=== PATIENT | female | born 1950 | race Caucasian/White ===

== ENCOUNTER 2018-04-03 08:18 | Emergency (ER) | payer MEDICARE, OTHER, SELFPAY ==
[2018-04-03 08:31] VITALS: BP 172/107; PULSE 89; RESP 18; TEMP 36.1; O2SAT 97
--- NOTE | 2018-04-03 08:51 | W.ED.GENAD ---
Discharge Plan Disposition Patient Disposition: HOME Condition: Improving Discharge Details Chief Complaint: Nk/Back Pain Clinical Impression: Back pain Primary Care Provider: Vi Savage ED Provider: Joanne Cadet Home Meds and New Rx's Prescriptions: New cyclobenzaprine 10 mg tablet 10 mg PO TID PRN (Reason: muscle spasm) Qty: 10 RF: 0 Discontinued meloxicam 15 MG tablet 15 mg PO DAILY Qty: 30 RF: 2 Discharge Instructions Instructions: Back Pain (ED) Additional Instructions: Encourage hydration. Encouraged gentle stretching and frequent ambulation. Tylenol and/or ibuprofen as needed for discomfort. You may use Flexeril as prescribed to help with spasm. This medication can be sedating and he should not drive while taking this medication. Please follow-up with primary care at the end of the week for reevaluation. If you develop altered sensation, change in urinary or bowel habits, fever/chills, increased pain or the new/worsening symptoms please seek care urgently once again Referrals: Vi Savage MD [Primary Care Provider] - Discharge Data Discharge Date/Time-TO BE ENTERED AT DEPARTURE: 04/03/18 09:58 Medical Decision Making Patient is a 68 year old female presenting today with left sided back pain that began 4 days ago after shoveling. STates that pain has steadily increased since then. Has been using Aleve intermittently since then with no relief in symptoms. Denies trauma, no fall. States that pain began the day after shoveling. Denies fevers/chills, no change in urinary habits. States she has been constipated. Endorses nausea with pain but no vomiting or change in appetite. States that pain is worse when sedentary and when beginning to move such as first thing in the morning. No radiating pain, no weakness or sensation change in LE. On exam, patient appears comfortable. She is moving well. She endorses 10/10 pain but appears quite comfortable at this time. Neuro exam is intact with no sensory or strength discrepancy. Negative straight leg raise bilaterally. She is good range of motion although she does endorse some discomfort with rotational movements. As patient was also concern for possible gallstones or kidney issues, this evaluated patient's abdomen. She has no abdominal discomfort. I reassured her that the gallbladder is on the contralateral side she is not exhibiting any discomfort over this area. She also does not have exquisite tenderness over the CVA area. With pain being elicited with range of motion, advised is very unlikely to be kidney related. Advised at this point, particularly as it came on after traveling, this is most consistent with muscle strain versus spasm Patient was treated with oral Tylenol, ibuprofen and Lidoderm patch. She is feeling much improved and is ambulate in well about the room. Patient has had similar discomfort in the past which was treated well with this combination as well as muscle relaxer. Patient did drive herself here. I did advise that we could prescribe her when she may find particularly helpful at night. I did advise against driving with this. She is given strict return precautions. She will contact her primary care today to schedule follow-up appointment. We discussed new/worsening symptoms when to seek care urgently once again. All of her questions and concerns were addressed and she is in agreement this plan. I did offer referral for physical therapy which patient declined at this time. Patient no longer on Meloxicam HPI General Mode of arrival: ambulatory. Date/Time Provider Initiated Documentation: 04/03/18 08:23. Limitations to Documentation: no limitations. Information obtained by: patient. History of Present Illness 68 year old F presents to the emergency department with the chief complaint of left sided back pain, described as severe, with intensity rated at 10. Quality is described as aching, and is localized to the back. Patient reports no radiation. Patient started experiencing this day(s) (4) and it has been constant. No relieving factors improve symptom(s), No exacerbating factors reported . Patient notes nausea/vomiting (endorses nauea when pain is severe); denies chest pain, cough, diaphoresis, fever/chills, headaches, loss of appetite, malaise, rash, shortness of breath and weakness. Patient did receive the following treatments prior to arrival, none Related Data Home Medications Medication Instructions Recorded Confirmed cyclobenzaprine 10 mg PO TID PRN #10 tab 04/03/18 Previous Rx's Medication Instructions Recorded cyclobenzaprine 10 mg PO TID PRN #10 tab 04/03/18 Allergies Allergy/AdvReac Type Severity Reaction Status Date / Time No Known Allergies Allergy Unverified 12/07/15 10:31 General Stated Complaint: Nk/Back Pain KIKE: 4 Review of Systems Constitutional Reports as per HPI, Denies chills, Denies fever(s), Denies headache(s) and Denies weakness ENT Denies headache(s) and Denies neck pain Cardiovascular Reports as per HPI Respiratory Reports as per HPI and Denies cough Musculoskeletal Reports as per HPI, Denies abnormal gait, Reports back pain, Denies muscle weakness, Denies neck pain, Denies numbness, Denies radiating pain into limb, Reports stiffness and Denies tingling Integumentary/Breasts Reports as per HPI, Denies rash and Denies wounds Neurologic Denies abnormal gait, Denies headache(s), Denies numbness, Denies tingling and Denies weakness [facility] Medical History Fibrocystic disease of breast Surgical History Colonoscopy - IV Sedation (12/07/15) Tubal Ligation, Laparoscopic Family History Mother Essential hypertension Heart disease Hyperlipidemia Myocardial infarction Father No problems noted. Sister No problems noted. Brother Essential hypertension Hyperlipidemia Brother Hyperlipidemia Brother No problems noted. Grandfather No problems noted. Grandfather Neoplasm Grandmother Neoplasm Grandmother No problems noted. Son No problems noted. Daughter No problems noted. Social History Smoking/Tobacco Use Status: Former Tobacco Use Exam Const General: cooperative, healthy appearing, comfortable, no acute distress, well developed and well groomed Nutritional Appearance: average body habitus and well nourished Orientation: alert and awake Resp Effort & Inspection: normal respiratory effort, able to speak in complete sentences and no respiratory distress Auscultation: clear to auscultation bilaterally, no rales, no rhonchi and no wheezes Cardio Rate: regular rate Rhythm: regular rhythm Heart Sounds: S1 normal and S2 normal GI Inspection: normal to inspection and non-distended Palpation: soft, no hepatosplenomegaly, not firm, no guarding, not rigid, no splenomegaly and nontender Percussion: normal to percussion Auscultation: normal bowel sounds Back/Spine/Pelvis Back: no CVA tenderness Cervical Spine: normal cervical lordosis and cervical ROM normal Thoracic/Lumbar Spine: thoraco-lumbar ROM normal (endorses discomfort with rotation but has full movement), straight leg raise negative bilaterally, No bend over test abnormal, No thoracic spinal tenderness, No lumbar spinal tenderness and No straight leg raise positive Back/spine/pelvis image: 1. area of discomfort Skin General skin exam: no rashes or lesions noted Lesions: no lesions Rashes: no rashes Trauma: no lacerations or abrasions Neuro General: alert and awake Cognition: normal cognition Speech: speech normal Gait: normal gait Motor: muscle tone normal throughout, strength 5/5 throughout, no movement abnormalities noted and no fasciculations Sensory Exam: no sensory deficits noted (no saddle paresthesias) DTR's: Rt Patellar: 2+, Lt Patellar: 2+, Rt Ankle: 2+ and Lt Ankle: 2+ Plantar Reflexes: Equivocal: bilateral Coordination: [id number] test normal Psych Appearance: grossly normal and well kempt Mental Status: mental status grossly normal Speech and Movement: speech and movement normal Course Vital Signs Temperature 36.1 C L 04/03/18 08:31 Pulse 89 04/03/18 08:31 Respiratory Rate 18 04/03/18 08:31 Blood Pressure 172/107 H 04/03/18 08:31 Pulse Oximetry 97 04/03/18 08:31 Temperature 36.1 C L 04/03/18 08:31 Pulse 89 04/03/18 08:31 Respiratory Rate 18 04/03/18 08:31 Respiratory Effort 04/03/18 08:31 Blood Pressure 172/107 H 04/03/18 08:31 Pulse Oximetry 97 04/03/18 08:31 Oxygen Delivery Method Room Air 04/03/18 08:31 Oxygen Flow Rate 0 04/03/18 08:31 Pain Level 10 04/03/18 08:31 Comment 04/03/18 08:31
--- NOTE | 2018-04-03 09:07 | ED.GENADUL_ITS ---
Discharge Plan Disposition Patient Disposition: HOME Condition: Improving Discharge Details Chief Complaint: Nk/Back Pain Clinical Impression: Back pain Primary Care Provider: Vi Savage ED Provider: Joanne Cadet Home Meds and New Rx's Prescriptions: New cyclobenzaprine 10 mg tablet 10 mg PO TID PRN (Reason: muscle spasm) Qty: 10 RF: 0 Discontinued meloxicam 15 MG tablet 15 mg PO DAILY Qty: 30 RF: 2 Discharge Instructions Instructions: Back Pain (ED) Additional Instructions: Encourage hydration. Encouraged gentle stretching and frequent ambulation. Tylenol and/or ibuprofen as needed for discomfort. You may use Flexeril as prescribed to help with spasm. This medication can be sedating and he should not drive while taking this medication. Please follow-up with primary care at the end of the week for reevaluation. If you develop altered sensation, change in urinary or bowel habits, fever/chills, increased pain or the new/worsening symptoms please seek care urgently once again Referrals: Vi Savage MD [Primary Care Provider] - Discharge Data Discharge Date/Time-TO BE ENTERED AT DEPARTURE: 04/03/18 09:58 Medical Decision Making Patient is a 68 year old female presenting today with left sided back pain that began 4 days ago after shoveling. STates that pain has steadily increased since then. Has been using Aleve intermittently since then with no relief in symptoms. Denies trauma, no fall. States that pain began the day after shoveling. Denies fevers/chills, no change in urinary habits. States she has been constipated. Endorses nausea with pain but no vomiting or change in appetite. States that pain is worse when sedentary and when beginning to move such as first thing in the morning. No radiating pain, no weakness or sensation change in LE. On exam, patient appears comfortable. She is moving well. She endorses 10/10 pain but appears quite comfortable at this time. Neuro exam is intact with no sensory or strength discrepancy. Negative straight leg raise bilaterally. She is good range of motion although she does endorse some discomfort with rotational movements. As patient was also concern for possible gallstones or kidney issues, this evaluated patient's abdomen. She has no abdominal discomfort. I reassured her that the gallbladder is on the contralateral side she is not exhibiting any discomfort over this area. She also does not have exquisite tenderness over the CVA area. With pain being elicited with range of motion, advised is very unlikely to be kidney related. Advised at this point, particularly as it came on after traveling, this is most consistent with muscle strain versus spasm Patient was treated with oral Tylenol, ibuprofen and Lidoderm patch. She is feeling much improved and is ambulate in well about the room. Patient has had similar discomfort in the past which was treated well with this combination as well as muscle relaxer. Patient did drive herself here. I did advise that we could prescribe her when she may find particularly helpful at night. I did advise against driving with this. She is given strict return precautions. She will contact her primary care today to schedule follow-up appointment. We discussed new/worsening symptoms when to seek care urgently once again. All of her questions and concerns were addressed and she is in agreement this plan. I did offer referral for physical therapy which patient declined at this time. Patient no longer on Meloxicam HPI General Mode of arrival: ambulatory . Date/Time Provider Initiated Documentation: 04/03/18 08:23 . Limitations to Documentation: no limitations . Information obtained by: patient . History of Present Illness 68 year old F presents to the emergency department with the chief complaint of left sided back pain, described as severe, with intensity rated at 10. Quality is described as aching, and is localized to the back. Patient reports no ra diation. Patient started experiencing this day(s) (4) and it has been constant. No relieving factors improve symptom(s), No exacerbating factors reported . Patient notes nausea/vomiting (endorses nauea when pain is severe); denies chest pain, cough, diaphoresis, fever/chills, headaches, loss of appetite, malaise, rash, shortness of breath and weakness. Patient did receive the following treatments prior to arrival, none Related Data Home Medications Medication Instructions Recorded Confirmed cyclobenzaprine 10 mg PO TID PRN #10 tab 04/03/18 Previous Rx's Medication Instructions Recorded cyclobenzaprine 10 mg PO TID PRN #10 tab 04/03/18 Allergies Allergy/AdvReac Type Severity Reaction Status Date / Time No Known Allergies Allergy Unverified 12/07/15 10:31 General Stated Complaint: Nk/Back Pain KIKE: 4 Review of Systems Constitutional Reports as per HPI, Denies chills, Denies fever(s), Denies headache(s) and Denies weakness ENT Denies headache(s) and Denies neck pain Cardiovascular Reports as per HPI Respiratory Reports as per HPI and Denies cough Musculoskeletal Reports as per HPI, Denies abnormal gait, Reports back pain, Denies muscle weakn ess, Denies neck pain, Denies numbness, Denies radiating pain into limb, Reports stiffness and Denies tingling Integumentary/Breasts Reports as per HPI, Denies rash and Denies wounds Neurologic Denies abnormal gait, Denies headache(s), Denies numbness, Denies tingling and Denies weakness PFS Medical History Fibrocystic disease of breast Surgical History Colonoscopy - IV Sedation (12/07/15) Tubal Ligation, Laparoscopic Family History Mother Essential hypertension Heart disease Hyperlipidemia Myocardial infarction Father No problems noted. Sister No problems noted. Brother Essential hypertension Hyperlipidemia Brother Hyperlipidemia Brother No problems noted. Grandfather No problems noted. Grandfather Neoplasm Grandmother Neoplasm Grandmother No problems noted. Son No problems noted. Daughter No problems noted. Social History Smoking/Tobacco Use Status: Former Tobacco Use Exam Const General: cooperative, healthy appearing, comfortable, no acute distress, well developed and well groomed Nutritional Appearance: average body habitus and well nourished Orientation: alert and awake Resp Effort & Inspection: normal respiratory effort, able to speak in complete sentences and no respiratory distress Auscultation: clear to auscultation bilaterally, no rales, no rhonchi and no wheezes Cardio Rate: regular rate Rhythm: regular rhythm Heart Sounds: S1 normal and S2 normal GI Inspection: normal to inspection and non-distended Palpation: soft, no hepatosplenomegaly, not firm, no guarding, not rigid, no splenomegaly and nontender Percussion: normal to percussion Auscultation: normal bowel sounds Back/Spine/Pelvis Back: no CVA tenderness Cervical Spine: normal cervical lordosis and cervical ROM normal Thoracic/Lumbar Spine: thoraco-lumbar ROM normal (endorses discomfort with rotation but has full movement), straight leg raise negative bilaterally, No bend over test abnormal, No thoracic spinal tenderness, No lumbar spinal tenderness and No straight leg raise positive Back/spine/pelvis image: 1. area of discomfort Skin General skin exam: no rashes or lesions noted Lesions: no lesions Rashes: no rashes Trauma: no lacerations or abrasions Neuro General: alert and awake Cognition: normal cognition Speech: speech normal Gait: normal gait Motor: muscle tone normal throughout, strength 5/5 throughout, no movement abnormalities noted and no fasciculations Sensory Exam: no sensory deficits noted (no saddle paresthesias) DTR's: Rt Patellar: 2+, Lt Patellar: 2+, Rt Ankle: 2+ and Lt Ankle: 2+ Plantar Reflexes: Equivocal: bilateral Coordination: [id number] test normal Psych Appearance: grossly normal and well kempt Mental Status: mental status grossly normal Speech and Movement: speech and movement normal Course Vital Signs Temperature 36.1 C L 04/03/18 08:31 Pulse 89 04/03/18 08:31 Respiratory Rate 18 04/03/18 08:31 Blood Pressure 172/107 H 04/03/18 08:31 Pulse Oximetry 97 04/03/18 08:31 Temperature 36.1 C L 04/03/18 08:31 Pulse 89 04/03/18 08:31 Respiratory Rate 18 04/03/18 08:31 Respiratory Effort 04/03/18 08:31 Blood Pressure 172/107 H 04/03/18 08:31 Pulse Oximetry 97 04/03/18 08:31 Oxygen Delivery Method Room Air 04/03/18 08:31 Oxygen Flow Rate 0 04/03/18 08:31 Pain Level 10 04/03/18 08:31 Comment 04/03/18 08:31
[2018-04-03] MEDS: Acetaminophen 500 MG TAB 1000 MG PO (09:15)
[2018-04-03] MEDS: Ibuprofen 600 MG TAB PO (09:15)
[2018-04-03] MEDS: Lidocaine 5% Patch 1 PATCH TP (09:16)
== END 2018-04-03 09:58 | disposition home or self-care (01) ==
PROVIDERS: Emergency Provider Physician Assistant; PCP Family Medicine
DX: M54.6 Pain in thoracic spine (principal)
CPT/HCPCS: 99283

== ENCOUNTER 2018-04-30 02:19 | Outpatient (CLI) | payer MEDICARE, SELFPAY ==
--- NOTE | 2018-04-30 12:00 | DI.MAMMO_ITS ---
SYMPTOM/DIAGNOSIS: SCREENING, Z12.31 MAMMOGRAMS: Mammograms were interpreted according to the usual protocol including computer analysis with CAD system, tomosynthesis and C view imaging. Comparison is made with prior examinations. Breast density, category B. No suspicious masses or microcalcifications are seen. There is no definite evidence of malignancy. IMPRESSION: Negative mammogram. Routine screening is recommended. Category 1. MQSA ASSESSMENT OF FINDINGS: Negative. Category 1. Patient will receive a letter notifying them of these results. BI-RADS category B. There are scattered areas of fibroglandular density.
== END 2018-04-30 02:39 ==
PROVIDERS: PCP Family Medicine; Visit Provider Family Medicine
DX: Z12.31 Encounter for screening mammogram for malignant neoplasm of breast (principal)
CPT/HCPCS: 77063; 77067

== ENCOUNTER 2018-10-31 09:06 | Outpatient (CLI) | payer MEDICARE, OTHER, SELFPAY ==
[2018-10-31 12:15] LABS: Calculated LDL 153 mg/dL; Cholesterol 239 mg/dL (50-200); Glucose 89 mg/dL (70-100); HDL Cholesterol 71 mg/dL (40-60); Triglyceride 77 mg/dL (30-150)
== END 2018-10-31 09:26 ==
PROVIDERS: PCP Family Medicine; Visit Provider Family Medicine
DX: E78.89 Other lipoprotein metabolism disorders (principal); Z13.1 Encounter for screening for diabetes mellitus
CPT/HCPCS: 36415; 80061; 82947; 83721

== ENCOUNTER 2019-05-06 02:03 | Outpatient (CLI) | payer MEDICARE, OTHER, SELFPAY ==
--- NOTE | 2019-05-06 08:45 | DI.MAMMO_ITS ---
EXAM: MG MAMMO SCREENING CLINICAL HISTORY: screening, Z12.31. TECHNIQUE: Bilateral full field digital CC and MLO mammographic images were obtained with 3D tomosyn thesis and utilizing computer aided detection (CAD). COMPARISON: Available for comparison. FINDINGS: Masses/Architectural Distortion: None seen. Microcalcifications: No suspicious pleomorphic-type are seen. Skin Thickening/Nipple Retraction: None. IMPRESSION: 1. No significant interval change with no specific features of malignancy noted. 2. Unless there is more urgent need, screening mammography is recommended, as per [employer] guidelines. ACR BI-RAD Category- 1 Negative Breast Density - Category B - Scattered areas of fibroglandular density A negative radiographic report should not delay biopsy if a dominant or clinically suspicious mass is present. Up to ten percent of cancers are not identified on mammography. A negative report may reinforce clinical impression. Adenosis and dense breasts may obscure an underlying neoplasm. False positive reports average 6 to 10%. Patient will receive a letter notifying them of these results.
== END 2019-05-06 02:23 ==
PROVIDERS: PCP Family Medicine; Visit Provider Family Medicine
DX: Z12.31 Encounter for screening mammogram for malignant neoplasm of breast (principal)
CPT/HCPCS: 77063; 77067

== ENCOUNTER 2020-06-16 02:30 | Outpatient (CLI) | payer MEDICARE, OTHER, SELFPAY ==
--- NOTE | 2020-06-16 06:15 | DI.DEXA_ITS ---
EXAM: XR DEXA BONE DENSITY W/WO KORIN CLINICAL HISTORY: decreased bone density,m85.99,other disorder bone density,screening for TECHNIQUE: HoloLight Extraction Horizon C densitometer. COMPARISON: No exams were available for comparison FINDINGS: Dough Catcher view of the thoracic and lumbar spine shows degenerative disc changes. No compression fracture s. Bone mineral density measurements of the lumbar spine correspond to a total T-score of 2.0, in the no rmal range. Endplate osteophytes a falsely elevate bone mineral density measurements. Bone mineral density measurements of the left hip correspond to a total T-score of -1.2 and a femoral neck T-score of -1.4, in the osteopenic range. Left forearm bone mineral density measurements correspond to a T-score of the distal 3rd of -1.2, in the mildly osteopenic range. IMPRESSION: Normal bone mineral density of the lumbar spine. Mild osteopenia of the left hip and left forearm.
--- NOTE | 2020-06-16 06:15 | DI.MAMMO_ITS ---
EXAM: MAMMO SCREENING CLINICAL HISTORY: screening TECHNIQUE: Mammograms were interpreted according to the usual protocol including computer analysis w [employer] CAD system, tomosynthesis and C-view imaging. COMPARISON: 2013 through 2019 FINDINGS: The breasts are composed of mainly fatty density , Breast Density category A. No suspicious masses or suspicious microcalcifications are seen. Vascular calcifications are inciden tally noted. No skin thickening or abnormal axillary lymph nodes are seen. There has been no significant change from prior exams. IMPRESSION: BI-RADS Category 1, Negative mammogram Yearly screening mammography is recommended. Breast Density - Category A, fatty density. A negative radiographic report should not delay biopsy if a dominant or clinically suspicious mass is present. Up to ten percent of cancers are not identified on mammography. A negative report may reinforce clinical impression. Adenosis and dense breasts may obscure an underlying neoplasm. False positive reports average 6 to 10%. Patient will receive a letter notifying them of these results.
--- NOTE | 2020-06-16 06:15 | DI.US_ITS ---
EXAM: US AAA SCREENING CLINICAL HISTORY: screening for aaa,z13.6 COMPARISON: No exams were available for comparison FINDINGS: Abdominal Aorta: Proximal: 2.5 x 2.5 cm Mid: 1.9 by 2.1 cm Distal: 2.0 x 1.9 cm Iliacs: Right: 1 x 1 cm Left: 1 x 1 cm The doppler velocities are within normal limits. No significant atherosclerotic disease is seen. IMPRESSION: No evidence of abdominal aortic aneurysm. DATA REPOSITORY:
== END 2020-06-16 02:50 ==
PROVIDERS: PCP Family Medicine; Visit Provider Nurse Practitioner Family
DX: Z12.31 Encounter for screening mammogram for malignant neoplasm of breast (principal); M85.88 Other specified disorders of bone density and structure, other site; Z13.6 Encounter for screening for cardiovascular disorders
CPT/HCPCS: 76706; 77063; 77067; 77080

== ENCOUNTER 2020-06-16 03:39 | Outpatient (CLI) | payer MEDICARE, OTHER, SELFPAY ==
[2020-06-16 08:04] LABS: HCT 42.8 % (36.0-46.0); HGB 13.8 g/dL (11.2-15.7); MCH 29.6 pg (27.0-33.0); MCHC 32.2 % (32.0-36.0); MCV 91.6 fL (80-95); MPV 11.2 fL (8.0-11.0); Platelet Count 260 10^3/uL (130-400); RBC 4.67 10^6/uL (3.93-5.22); RDW 13.2 % (11.7-14.6); RDW-SD 44.9 fL; WBC 4.13 10^3/uL (4.4-10.8)
[2020-06-16 09:03] LABS: ALT 23 U/L (14-59); AST 20 U/L (15-37); Albumin 3.4 g/dL (3.4-5.0); Alkaline Phosphatase 98 U/L (46-116); Anion Gap 4.4 mmol/L (3-11); BUN 19 mg/dL (7-18); Bilirubin, Total 0.5 mg/dL (0.2-1.0); CO2 33.6 mmol/L (21.0-32.0); CREATININE 0.9 mg/dL (0.55-1.02); Calcium 8.8 mg/dL (8.5-10.1); Calculated LDL 141 mg/dL (<100); Chloride 105 mmol/L (98-107); Cholesterol 223 mg/dL (<200); Glucose 103 mg/dL (74-106); HDL Cholesterol 68 mg/dL (40-60); Potassium 4.4 mmol/L (3.5-5.1); Sodium 143 mmol/L (136-145); Total Protein 6.6 g/dL (6.4-8.2); Triglyceride 70 mg/dL (<150)
[2020-06-16 09:25] LABS: Vitamin B12 568 pg/mL (193-986)
== END 2020-06-16 03:40 | disposition home or self-care (01) ==
LOC: LBO 03:39
PROVIDERS: Nurse Practitioner Family; PCP Family Medicine; Visit Provider Nurse Practitioner Family
DX: E78.5 Hyperlipidemia, unspecified (principal); G62.9 Polyneuropathy, unspecified
CPT/HCPCS: 36415; 80053; 80061; 85027; 82607

== ENCOUNTER 2021-08-10 02:42 | Outpatient (CLI) | payer MEDICARE, OTHER, SELFPAY ==
[2021-08-10 10:32] LABS: ALT 26 U/L (14-59); AST 22 U/L (15-37); Albumin 3.3 g/dL (3.4-5.0); Alkaline Phosphatase 95 U/L (46-116); Anion Gap 7.5 mmol/L (3-11); BUN 35 mg/dL (7-18); Bilirubin, Total 0.4 mg/dL (0.2-1.0); CO2 30.5 mmol/L (21.0-32.0); CREATININE 0.8 mg/dL (0.55-1.02); Calcium 8.7 mg/dL (8.5-10.1); Calculated LDL 174 mg/dL (<100); Chloride 104 mmol/L (98-107); Cholesterol 258 mg/dL (<200); Glucose 84 mg/dL (74-106); HDL Cholesterol 73 mg/dL (40-60); Potassium 4.1 mmol/L (3.5-5.1); Sodium 142 mmol/L (136-145); Total Protein 6.5 g/dL (6.4-8.2); Triglyceride 59 mg/dL (<150)
== END 2021-08-10 02:43 | disposition home or self-care (01) ==
LOC: LBO 02:42
DX: E78.5 Hyperlipidemia, unspecified (principal); I10 Essential (primary) hypertension
CPT/HCPCS: 36415; 80053; 80061

== ENCOUNTER 2021-08-25 01:56 | Outpatient (CLI) | payer MEDICARE, OTHER, SELFPAY ==
--- NOTE | 2021-08-25 07:45 | DI.RAD_ITS ---
Exam(s) XR ELBOW RT COMPLETE EXAM: XR ELBOW RT COMPLETE CLINICAL HISTORY: injury/fall about 1 year ago - not better,rt elbow pain,m25.521. TECHNIQUE: 2D digital imaging was performed. COMPARISON: No exams were available for comparison FINDINGS: 3 views No evident of fracture nor joint effusion. No swelling of the olecranon bursa. Radial head and neck unremarkable. Medial epicondyle unremarkable. Slight irregularity of the cortex of the lateral epi condyle may indicate an element of epicondylitis. Correlation with site of tenderness is recommended . Bone density otherwise normal and there are no significant osseous lesions in the field of view of this study IMPRESSION: No fracture or joint effusion. Findings suggestive of lateral epicondylitis DATA REPOSITORY: RADIATION DOSE DELIVERED:
== END 2021-08-25 02:16 ==
LOC: DI 01:57
DX: M25.521 Pain in right elbow (principal)
CPT/HCPCS: 73080

== ENCOUNTER → 2021-09-13 02:09 | Outpatient (CLI) | payer MEDICARE, OTHER, SELFPAY ==
--- NOTE | 2021-09-13 12:46 | DI.MAMMO_ITS ---
Exam(s) MAMMO SCREENING EXAM: MAMMO SCREENING CLINICAL HISTORY: screening,Z12.39. TECHNIQUE: Bilateral full field digital CC and MLO mammographic images were obtained with 3D tomosyn thesis and utilizing computer aided detection (CAD). COMPARISON: Prior mammograms were reviewed, the most recent being May 2020. FINDINGS: Again noted is a stable appearing group of microcalcifications upper-outer quadrant left breast. There are no new spiculated masses nor new malignant appearing microcalcification groups. There is no significant architectural distortion nor skin thickening-retraction. IMPRESSION: Stable benign-appearing findings. No radiographic evidence of malignancy. BI-RADS Category 2 - Benign Findings Breast Density - Category B - Scattered areas of fibroglandular density Breast density Category C or D implies that the patient has dense breast tissue. Dense breast tissue can make it harder to find cancer on a mammogram. Dense breast tissue is also associated with an incr eased risk of breast cancer. This information about the result of the mammogram report was provided to the patient to raise their awareness. Use this report when you speak with the patient about their risks for breast cancer, which includes their family history. At that time, you may recommend additional screening tests (Ultrasoun d or MRI) as these tests may add significant information. A negative radiographic report should not delay biopsy if a dominant or clinically suspicious mass is present. Up to ten percent of cancers are not identified on mammography. A negative report may reinforce clinical impression. Adenosis and dense breasts may obscure an underlying neoplasm. False positive reports average 6 to 10%. Patient will receive a letter notifying them of these results.
== END ==
DX: Z12.31 Encounter for screening mammogram for malignant neoplasm of breast (principal); N60.82 Other benign mammary dysplasias of left breast
CPT/HCPCS: 77063; 77067

== ENCOUNTER 2022-09-16 00:20 | Outpatient (CLI) | payer MEDICARE, OTHER, SELFPAY ==
--- NOTE | 2022-09-16 06:30 | DI.MAMMO_ITS ---
Exam(s) MAMMO SCREENING EXAM: MAMMO SCREENING CLINICAL HISTORY: screening,z12.39 TECHNIQUE: Mammograms were interpreted according to the usual protocol including computer analysis w [employer] CAD system, tomosynthesis and C-view imaging. COMPARISON: 2013 through 2021 FINDINGS: The breasts are composed of mainly fatty density , Breast Density category A. No suspicious masses or suspicious microcalcifications are seen. No skin thickening or abnormal axillary lymph nodes are seen. There has been no significant change from prior exams. IMPRESSION: BI-RADS Category 1, Negative mammogram Yearly screening mammography is recommended. Breast Density - Category A, fatty density. A negative radiographic report should not delay biopsy if a dominant or clinically suspicious mass is present. Up to ten percent of cancers are not identified on mammography. A negative report may reinforce clinical impression. Adenosis and dense breasts may obscure an underlying neoplasm. False positive reports average 6 to 10%. Patient will receive a letter notifying them of these results.
== END 2022-09-16 00:40 ==
LOC: DI 00:20
PROVIDERS: PCP Nurse Practitioner Family; Visit Provider Nurse Practitioner Family
DX: Z12.31 Encounter for screening mammogram for malignant neoplasm of breast (principal)
CPT/HCPCS: 77063; 77067

== ENCOUNTER 2023-08-07 11:31 | Outpatient (REF) | payer MEDICARE, OTHER, SELFPAY ==
[2023-08-07 12:45] LABS: ALT 22 U/L (14-59); AST 19 U/L (15-37); Albumin 3.2 g/dL (3.4-5.0); Alkaline Phosphatase 93 U/L (46-116); Anion Gap 7.3 mmol/L (3-11); BUN 21 mg/dL (7-18); Bilirubin, Total 0.5 mg/dL (0.2-1.0); CO2 29.7 mmol/L (21.0-32.0); CREATININE 0.7 mg/dL (0.55-1.02); Calcium 9.1 mg/dL (8.5-10.1); Calculated LDL 157 mg/dL (<100); Chloride 105 mmol/L (98-107); Cholesterol 248 mg/dL (<200); Estimated GFR 91.83 (mL/min/1.73m2); Glucose 88 mg/dL (74-106); HDL Cholesterol 77 mg/dL (40-60); Potassium 4.2 mmol/L (3.5-5.1); Sodium 142 mmol/L (136-145); Total Protein 6.5 g/dL (6.4-8.2); Triglyceride 72 mg/dL (<150)
== END 2023-08-07 11:32 | disposition home or self-care (01) ==
LOC: LBN 11:31
PROVIDERS: PCP Nurse Practitioner Family; Visit Provider Nurse Practitioner Family
DX: E78.5 Hyperlipidemia, unspecified (principal)
CPT/HCPCS: 80053; 80061

== ENCOUNTER → 2023-09-18 02:53 | Outpatient (CLI) | payer MEDICARE, OTHER, SELFPAY ==
--- NOTE | 2023-09-18 06:45 | DI.MAMMO_ITS ---
Exam(s) MAMMO SCREENING EXAM: MAMMO SCREENING CLINICAL HISTORY: screening,z12.39. TECHNIQUE: Bilateral full field digital CC and MLO mammographic images were obtained with 3D tomosyn thesis and utilizing computer aided detection (CAD). COMPARISON: Prior mammograms were reviewed. FINDINGS: There has been no significant change in the appearance and distribution of the fibroglandular tissue. There are no new spiculated masses nor new malignant appearing microcalcification groups. A group of microcalcifications in the upper outer quadrant of the left breast located 15 cm in from t he nipple appears unchanged from prior mammograms dating back to 2019. There is no significant architectural distortion nor skin thickening-retraction. IMPRESSION: Stable benign-appearing findings. No radiographic evidence of malignancy. BI-RADS Category 2 - Benign Findings Breast Density - Category B - Scattered areas of fibroglandular density Breast density Category C or D implies that the patient has dense breast tissue. Dense breast tissue can make it harder to find cancer on a mammogram. Dense breast tissue is also associated with an incr eased risk of breast cancer. This information about the result of the mammogram report was provided to the patient to raise their awareness. Use this report when you speak with the patient about their risks for breast cancer, which includes their family history. At that time, you may recommend additional screening tests (Ultrasoun d or MRI) as these tests may add significant information. A negative radiographic report should not delay biopsy if a dominant or clinically suspicious mass is present. Up to ten percent of cancers are not identified on mammography. A negative report may reinforce clinical impression. Adenosis and dense breasts may obscure an underlying neoplasm. False positive reports average 6 to 10%. Patient will receive a letter notifying them of these results.
--- NOTE | 2023-09-18 06:45 | DI.DEXA_ITS ---
Exam(s) XR DEXA BONE DENSITY W/WO KORIN EXAM: XR DEXA BONE DENSITY W/WO KORIN CLINICAL HISTORY: screening for osteoporosis in postmenopausal woman,z78.0 TECHNIQUE: COMPARISON: CR XR DEXA BONE DENSITY W/WO KORIN from 06/16/2020 FINDINGS: Lateral Spine Image: Unremarkable. No compression deformities identified. Left hip: Total T-Score: -1.0. This compares to -1.2 on the prior examination. Total Z-Score: 0.7 T- and Z-scores: Within normal limits. No evidence of osteoporosis. Lumbar Spine: Total T-Score: 2.7. This compares to 2.0 on the prior examination. Total Z-Score: 4.9 T- and Z-scores: Within normal limits. No evidence of osteoporosis. IMPRESSION: No evidence of osteoporosis.
== END ==
PROVIDERS: PCP Nurse Practitioner Family; Visit Provider Nurse Practitioner Family
DX: Z12.39 Encounter for other screening for malignant neoplasm of breast (principal); E78.5 Hyperlipidemia, unspecified; Z78.0 Asymptomatic menopausal state
CPT/HCPCS: 77063; 77067; 77080

== ENCOUNTER 2024-10-09 01:50 | Outpatient (CLI) | payer MEDICARE, SELFPAY ==
--- NOTE | 2024-10-09 08:40 | DI.MAMMO_ITS ---
Exam(s) MAMMO SCREENING EXAM: MAMMO SCREENING CLINICAL HISTORY: screening,z12.39 TECHNIQUE: Bilateral full field digital CC and MLO mammographic images were obtained with 3D tomosynthesis and utilizing computer aided detection (CAD). COMPARISON: Comparison is made with prior examinations. FINDINGS: Masses/Architectural Distortion: No suspicious masses or areas of architectural distortion are present. Microcalcifications: No suspicious pleomorphic-type are seen. There are stable benign type calcifications in the breasts. Skin Thickening/Nipple Retraction: None. IMPRESSION: 1. No significant interval change with no specific features of malignancy noted. 2. Unless there is more urgent need, screening mammography is recommended, as per [employer] guidelines. BI-RADS Category 2 - Benign Findings Breast Density - Category B - There are scattered areas of fibroglandular density. Breast density Category C or D implies that the patient has dense breast tissue. Dense breast tissue can make it harder to find cancer on a mammogram. Dense breast tissue is also associated with an increased risk of breast cancer. This information about the result of the mammogram report was provided to the patient to raise their awareness. Use this report when you speak with the patient about their risks for breast cancer, which includes their family history. At that time, you may recommend additional screening tests (Ultrasound or MRI) as these tests may add significant information. A negative radiographic report should not delay biopsy if a dominant or clinically suspicious mass is present. Up to ten percent of cancers are not identified on mammography. A negative report may reinforce clinical impression. Adenosis and dense breasts may obscure an underlying neoplasm. False positive reports average 6 to 10%. Patient will receive a letter notifying them of these results.
== END 2024-10-09 02:10 ==
PROVIDERS: PCP Nurse Practitioner Family; Visit Provider Nurse Practitioner Family
DX: Z12.31 Encounter for screening mammogram for malignant neoplasm of breast (principal); E78.5 Hyperlipidemia, unspecified; R92.323 Mammographic fibroglandular density, bilateral breasts
CPT/HCPCS: 77063; 77067

== ENCOUNTER 2024-10-29 03:19 | Outpatient (CLI) | payer MEDICARE, SELFPAY ==
[2024-10-29 12:15] LABS: ALT 31 U/L (14-59); AST 21 U/L (15-37); Albumin 3.3 g/dL (3.4-5.0); Alkaline Phosphatase 93 U/L (46-116); Anion Gap 4.8 mmol/L (3-11); BUN 25 mg/dL (7-18); Bilirubin, Total 0.5 mg/dL (0.2-1.0); CO2 31.2 mmol/L (21.0-32.0); Calcium 8.9 mg/dL (8.5-10.1); Calculated LDL 122 mg/dL (<100); Chloride 108 mmol/L (98-107); Cholesterol 202 mg/dL (<200); Estimated GFR 67.50 (mL/min/1.73m2); Glucose 88 mg/dL (74-106); HDL Cholesterol 69 mg/dL (>or=50); Potassium 4.6 mmol/L (3.5-5.1); Sodium 144 mmol/L (136-145); Total Protein 6.9 g/dL (6.4-8.2); Triglyceride 55 mg/dL (<150)
== END 2024-10-29 03:20 | disposition home or self-care (01) ==
LOC: LBO 03:19
PROVIDERS: PCP Nurse Practitioner Family; Visit Provider Nurse Practitioner Family
DX: E78.5 Hyperlipidemia, unspecified (principal); I10 Essential (primary) hypertension
CPT/HCPCS: 36415; 80053; 80061